=== PATIENT | female | born 1965 | race Caucasian/White ===

== ENCOUNTER → 2019-02-17 | Outpatient (CLI) | payer OTHER ==
[~2019-02-17] MED LIST: PROHANCE 279.3MG/ML 15ML VIAL (A9576) As Ordered ONE; PROHANCE 279.3MG/ML 5ML VIAL (A9576) As Ordered ONE
--- NOTE | 2019-02-17 12:19 | REP ---
MR BRAIN WITHOUT AND WITH CONTRAST: HISTORY: Papilledema. CONTRAST: ProHance 15 mL. COMPARISON: 04/17/2016 There are no areas of abnormal signal intensity in the brain. There is no intraparenchymal hemorrhage, infarct, mass or midline shift. The sella turcica is empty. There is no abnormal enhancement. The ventricular system is normal in appearance. There is no extracerebral collection. Minimal mucosal thickening is present in the right mastoid air cells. The sinuses are clear. IMPRESSION: There is no intracranial lesion. Electronically Signed by David Johnson MD 02/17/2019 12:22 P
== END ==
LOC: M RAD 10:44
PROVIDERS: ATTEND Psychiatry & Neurology Neurology
DX: G93.2 Benign intracranial hypertension (principal)
CPT/HCPCS: 70553; A9576